=== PATIENT | female | born 1960 | race Caucasian/White ===

== ENCOUNTER 2023-08-20 23:08 | Inpatient (IN) | payer MEDICARE ==
[2023-08-20] MEDS ORDERED: Nitroglycerin 0.4 MG TAB 1 EACH ONE (23:35)
[2023-08-21] MEDS ORDERED: Furosemide 40 MG/4 ML VIAL ONE ×2 (00:33→06:35)
[2023-08-21] MEDS ORDERED: Azithromycin 500 MG VIAL ONE (00:34)
[2023-08-21 01:00] LABS: #Monocytes 0.2 thou/uL (0.11-0.59); #Neutrophils 10.2 thou/uL (1.40-6.50); %Basophils 0.3 % (0.0-1.0); %Eosinophils 0.1 % (0.0-10.0); %Lymphocytes 3.8 % (21.0-51.0); %Monocytes 1.9 % (0.0-10.0); %Neutrophils 93.4 % (42.0-75.0); Hematocrit 32.5 % (36.0-47.0); Hemoglobin 10.4 g/dL (12.0-16.0); Mean Corpuscular Hemoglobin 33.4 pg (27.0-31.0); Mean Corpuscular Volume 104.5 fl (78.0-98.0); Mean Platelet Volume 11.7 fL (7.4-10.4); Platelet Count 151 10x3/uL (130-400); RBC Distribution Width 13.9 % (11.5-14.5); Red Blood Cell (RBC) Count 3.11 mill/uL (4.20-5.40); White Blood Cell (WBC) Count 10.9 10x3/uL (4.8-10.8)
[2023-08-21 01:14] LABS: Anion Gap 15 mmol/L (10-20); BUN (Urea Nitrogen) 21 mg/dL (9.8-20.1); Calc. Creatinine Clearance 0 mL/min (70-130); Calcium 8.5 mg/dL (7.8-10.44); Carbon Dioxide 21 mmol/L (23-31); Chloride 108 mmol/L (98-107); Estimated GFR 31; Glucose 172 mg/dL (80-115); Potassium 3.9 mmol/L (3.5-5.1); Sodium 140 mmol/L (136-145)
[2023-08-21 01:23] LABS: Troponin I 0.379 ng/mL (< 0.028)
[2023-08-21 02:39] LABS: Actual Bicarbonate (HCO3v) 20.4 mEq/L (22-28); Calcium, Ionized (venous) 1.07 mmol/L (1.16-1.32); Chloride (VBG) 107 mmol/L (98-106); Hematocrit-VBG 35 % (36.0-47.0); Hemoglobin (Hb) 11.8 g/dL (11.7-16.0); Potassium (VBG) 3.74 mmol/L (3.70-5.30); Sodium 141 mmol/L (133-146); pH (venous) 7.285 (7.32-7.43)
[2023-08-21] MEDS ORDERED: Senokot S 8.6-50 MG TAB PO PRN (03:45)
[2023-08-21] MEDS ORDERED: Ondansetron ODT 4 MG TAB PO PRN (03:45)
[2023-08-21] MEDS ORDERED: Acetaminophen 325 MG TAB PO PRN (03:45)
[2023-08-21] MEDS ORDERED: Aspirin Chewable 81 MG TAB PO SCH (04:15)
[2023-08-21 04:35] LABS: Magnesium 1.8 mg/dL (1.6-2.6)
[2023-08-21 04:37] LABS: Lactic Acid 3.7 mmol/L (0.5-2.2)
[2023-08-21 04:43] LABS: Troponin I 1.631 ng/mL (< 0.028)
[2023-08-21] MEDS ORDERED: Aspirin Chewable 81 MG TAB ONE (05:09)
[2023-08-21] MEDS: Furosemide 40 MG/4 ML VIAL SLOW IVP SCH ×2 (06:38→14:37)
[2023-08-21 07:24] LABS: Lactic Acid 3.3 mmol/L (0.5-2.2)
[2023-08-21 07:52] LABS: Troponin I 2.605 ng/mL (< 0.028)
[2023-08-21] MEDS ORDERED: Aspirin 81 mg Enteric Coated Tablet ONE (09:08)
[2023-08-21] MEDS ORDERED: Clopidogrel Bisulfate 300 MG TAB ONE (09:08)
[2023-08-21] MEDS ORDERED: Carvedilol 6.25 MG TAB ONE (09:09)
[2023-08-21] MEDS ORDERED: Famotidine 20 MG TAB ONE (09:09)
[2023-08-21] MEDS ORDERED: Iopamidol-370 76% 500 ML MDV (1 ML CHARGE) ONE (09:10)
[2023-08-21] MEDS: Carvedilol 3.125 MG TAB PO SCH ×2 (09:18→17:14)
[2023-08-21] MEDS: Aspirin 81 mg Enteric Coated Tablet PO SCH (09:19)
[2023-08-21] MEDS: Famotidine 20 MG TAB PO SCH (09:20)
[2023-08-21] MEDS: Aspirin Chewable 81 MG TAB PO SCH (09:22)
[2023-08-21] MEDS ORDERED: Dextrose 50% Abboject 50 ML SYRINGE SLOW IVP PRN (11:33)
[2023-08-21] MEDS ORDERED: Dextrose 5% in Water 1,000 ML IV PRN (11:33)
[2023-08-21] MEDS ORDERED: HumaLOG 300 UNITS/3 ML VIAL SC PRN ×2 (11:33)
[2023-08-21] MEDS ORDERED: Glucagon 1 MG/ML KIT IM PRN (11:33)
[2023-08-21 12:27] VITALS: BMI 30.7
[2023-08-21] MEDS ORDERED: FLU VACC QS2023-24(6MOS UP)/PF 60 MCG/0.5 ML SYRINGE IM ONE (18:00)
[2023-08-21 21:50] LABS: RBC Count-Automated (BF) 590 /cu.mm; WBC/Nucleated-Auto (BF) 260 /cu.mm
[2023-08-21 21:59] LABS: BF Color Yellow; Body Fluid Source Thoracentesis Fluid; Clarity Clear (Clear); Tube # EDTA
[2023-08-21 22:09] LABS: Pleural Fluid, Protein 2.2 g/dL
[2023-08-21 22:12] LABS: BF Segmented Neutrophils 24 %; Cell Count Non Hematic 50 %; Lymphocytes 26 %
[2023-08-22 04:47] LABS: #Eosinphils 0.1 thou/uL (0.0-0.7); #Monocytes 0.4 thou/uL (0.11-0.59); #Neutrophils 6.5 thou/uL (1.40-6.50); %Basophils 0.3 % (0.0-1.0); %Eosinophils 0.9 % (0.0-10.0); %Lymphocytes 23.2 % (21.0-51.0); %Monocytes 4.3 % (0.0-10.0); %Neutrophils 70.9 % (42.0-75.0); Hematocrit 26.7 % (36.0-47.0); Hemoglobin 8.5 g/dL (12.0-16.0); Mean Corpuscular HGB CONC 31.8 g/dL (32.0-36.0); Mean Corpuscular Hemoglobin 33.1 pg (27.0-31.0); Mean Corpuscular Volume 103.9 fl (78.0-98.0); Mean Platelet Volume 12.3 fL (7.4-10.4); Platelet Count 113 10x3/uL (130-400); RBC Distribution Width 14.1 % (11.5-14.5); Red Blood Cell (RBC) Count 2.57 mill/uL (4.20-5.40); White Blood Cell (WBC) Count 9.1 10x3/uL (4.8-10.8)
[2023-08-22] MEDS: Furosemide 40 MG/4 ML VIAL SLOW IVP SCH ×2 (05:21→13:08)
[2023-08-22 05:46] LABS: CellaVision Operator ID lab.abc; Macrocytosis SLIGHT = 6-15 cells HPF (0-5); Platelet Adequacy Comment Platelets Decreased; Smudge Cells 18.8 %
[2023-08-22 06:07] LABS: Hemoglobin A1c 5.2 % (4.0-6.0)
[2023-08-22 06:15] LABS: Anion Gap 16 mmol/L (10-20); BUN (Urea Nitrogen) 37 mg/dL (9.8-20.1); Calc. Creatinine Clearance 38 mL/min (70-130); Calcium 8.6 mg/dL (7.8-10.44); Carbon Dioxide 24 mmol/L (23-31); Cardiac Risk 4.5 (Less than 4.5); Chloride 104 mmol/L (98-107); Cholesterol 184 mg/dl (< 200 Desired); Estimated GFR 25; Glucose 100 mg/dL (80-115); HDL Cholesterol 41 mg/dL (>60 Neg Risk); LDL Cholesterol, Calculated 124 mg/dL; Potassium 3.6 mmol/L (3.5-5.1); Sodium 140 mmol/L (136-145); Triglycerides 94 mg/dL (Less than 150)
[2023-08-22] MEDS: Carvedilol 3.125 MG TAB PO SCH ×2 (08:43→17:02)
[2023-08-22] MEDS: Famotidine 20 MG TAB PO SCH (08:44)
[2023-08-22] MEDS: Aspirin 81 mg Enteric Coated Tablet PO SCH (08:44)
[2023-08-22] MEDS: Aspirin Chewable 81 MG TAB PO SCH (08:50)
[2023-08-22 11:16] LABS: Troponin I 1.474 ng/mL (< 0.028)
[2023-08-23] MEDS: Furosemide 40 MG/4 ML VIAL SLOW IVP SCH (05:49)
[2023-08-23] MEDS: Carvedilol 3.125 MG TAB PO SCH ×2 (08:58→16:58)
[2023-08-23] MEDS: Aspirin 81 mg Enteric Coated Tablet PO SCH (08:58)
[2023-08-23] MEDS ORDERED: Amlodipine 5 MG TAB PO SCH (10:00)
[2023-08-23 10:40] LABS: Iron 88 ug/dL (50-170); Iron Binding Capacity, Total 303 mcg/dL (265-497)
[2023-08-23 11:07] LABS: Ferritin 352.75 ng/mL (10-291)
[2023-08-23 12:46] LABS: Bacteria/HPF None Seen HPF (None Seen); Bilirubin Negative (Negative); Blood, Urine Negative (Negative); Clarity Clear (Clear); Glucose, Urine (Dipstick) Normal (Negative); Ketone, Urine Negative (Negative); Leukocyte Negative Leu/uL (Negative); Nitrite Negative (Negative); Protein, Urine (Dipstick) Negative (Neg-Trace); RBC/HPF None Seen HPF (0-3); Squamous Epithelial 0-3 HPF (0-3); Urobilinogen Normal mg/dL (Less than 2); WBC/HPF 0-3 HPF (0-3); pH, Urine 5.5 (5.0-9.0)
[2023-08-23 15:59] LABS: Anion Gap 15 mmol/L (10-20); BUN (Urea Nitrogen) 41 mg/dL (9.8-20.1); Calc. Creatinine Clearance 32 mL/min (70-130); Calcium 8.5 mg/dL (7.8-10.44); Carbon Dioxide 28 mmol/L (23-31); Chloride 100 mmol/L (98-107); Estimated GFR 22; Glucose 112 mg/dL (80-115); Potassium 3.6 mmol/L (3.5-5.1); Sodium 139 mmol/L (136-145)
[2023-08-23] MEDS: Sodium Chloride 0.9% 1,000 ML IV SCH (16:58)
[2023-08-23] MEDS: Heparin 5,000 UNITS/ML VIAL SC SCH (21:20)
[2023-08-23] MEDS: Atorvastatin Calcium 20 MG TAB PO SCH (21:20)
[2023-08-24 05:14] LABS: #Eosinphils 0.2 thou/uL (0.0-0.7); #Monocytes 0.4 thou/uL (0.11-0.59); #Neutrophils 3.6 thou/uL (1.40-6.50); %Basophils 0.6 % (0.0-1.0); %Eosinophils 3.8 % (0.0-10.0); %Lymphocytes 32.3 % (21.0-51.0); %Monocytes 5.9 % (0.0-10.0); %Neutrophils 57.2 % (42.0-75.0); Hematocrit 28.3 % (36.0-47.0); Hemoglobin 9.2 g/dL (12.0-16.0); Mean Corpuscular HGB CONC 32.5 g/dL (32.0-36.0); Mean Corpuscular Hemoglobin 33.6 pg (27.0-31.0); Mean Corpuscular Volume 103.3 fl (78.0-98.0); Mean Platelet Volume 12.6 fL (7.4-10.4); Platelet Count 127 10x3/uL (130-400); RBC Distribution Width 13.9 % (11.5-14.5); Red Blood Cell (RBC) Count 2.74 mill/uL (4.20-5.40); White Blood Cell (WBC) Count 6.3 10x3/uL (4.8-10.8)
[2023-08-24 05:42] LABS: Anion Gap 16 mmol/L (10-20); BUN (Urea Nitrogen) 41 mg/dL (9.8-20.1); Calc. Creatinine Clearance 34 mL/min (70-130); Calcium 8.7 mg/dL (7.8-10.44); Carbon Dioxide 27 mmol/L (23-31); Chloride 102 mmol/L (98-107); Estimated GFR 24; Glucose 94 mg/dL (80-115); Potassium 3.7 mmol/L (3.5-5.1); Sodium 141 mmol/L (136-145)
[2023-08-24] MEDS ORDERED: Amlodipine 5 MG TAB PO SCH (09:00)
[2023-08-24] MEDS: Carvedilol 3.125 MG TAB PO SCH ×2 (09:46→17:00)
[2023-08-24] MEDS: Aspirin 81 mg Enteric Coated Tablet PO SCH (09:47)
[2023-08-24] MEDS: Heparin 5,000 UNITS/ML VIAL SC SCH ×2 (09:47→21:44)
[2023-08-24] MEDS: Sodium Chloride 0.9% 1,000 ML IV SCH (12:16)
[2023-08-24] MEDS: Atorvastatin Calcium 20 MG TAB PO SCH (21:43)
[2023-08-25 08:09] LABS: #Eosinphils 0.2 thou/uL (0.0-0.7); #Monocytes 0.3 thou/uL (0.11-0.59); #Neutrophils 2.8 thou/uL (1.40-6.50); %Basophils 0.6 % (0.0-1.0); %Lymphocytes 27.8 % (21.0-51.0); %Monocytes 7.2 % (0.0-10.0); %Neutrophils 59.8 % (42.0-75.0); Hematocrit 27.2 % (36.0-47.0); Hemoglobin 8.7 g/dL (12.0-16.0); Mean Corpuscular Hemoglobin 33.2 pg (27.0-31.0); Mean Corpuscular Volume 103.8 fl (78.0-98.0); RBC Distribution Width 13.6 % (11.5-14.5); Red Blood Cell (RBC) Count 2.62 mill/uL (4.20-5.40); White Blood Cell (WBC) Count 4.8 10x3/uL (4.8-10.8)
[2023-08-25 08:17] LABS: Platelet Count 109 10x3/uL (130-400)
[2023-08-25 08:35] LABS: Anion Gap 12 mmol/L (10-20); BUN (Urea Nitrogen) 37 mg/dL (9.8-20.1); Calc. Creatinine Clearance 35 mL/min (70-130); Calcium 8.4 mg/dL (7.8-10.44); Carbon Dioxide 24 mmol/L (23-31); Chloride 105 mmol/L (98-107); Estimated GFR 25; Glucose 99 mg/dL (80-115); Potassium 3.8 mmol/L (3.5-5.1); Sodium 137 mmol/L (136-145)
[2023-08-25] MEDS: Sodium Chloride 0.9% 1,000 ML IV SCH (09:17)
[2023-08-25] MEDS: Aspirin 81 mg Enteric Coated Tablet PO SCH (09:18)
[2023-08-25] MEDS: Heparin 5,000 UNITS/ML VIAL SC SCH ×2 (09:18→20:08)
[2023-08-25] MEDS: Amlodipine 10 MG TAB PO SCH (09:19)
[2023-08-25] MEDS: Carvedilol 3.125 MG TAB PO SCH ×2 (09:19→17:49)
[2023-08-25] MEDS: Atorvastatin Calcium 20 MG TAB PO SCH (20:08)
[2023-08-26 05:05] LABS: Anion Gap 11 mmol/L (10-20); BUN (Urea Nitrogen) 36 mg/dL (9.8-20.1); Calc. Creatinine Clearance 39 mL/min (70-130); Calcium 8.6 mg/dL (7.8-10.44); Carbon Dioxide 24 mmol/L (23-31); Chloride 106 mmol/L (98-107); Estimated GFR 28; Glucose 107 mg/dL (80-115); Sodium 137 mmol/L (136-145)
[2023-08-26] MEDS: Sodium Chloride 0.9% 1,000 ML IV SCH (08:46)
[2023-08-26] MEDS: Amlodipine 10 MG TAB PO SCH (08:47)
[2023-08-26] MEDS: Aspirin 81 mg Enteric Coated Tablet PO SCH (08:49)
[2023-08-26] MEDS: Carvedilol 3.125 MG TAB PO SCH ×2 (08:49→17:36)
[2023-08-26] MEDS: Heparin 5,000 UNITS/ML VIAL SC SCH ×2 (09:01→21:47)
[2023-08-26] MEDS: Atorvastatin Calcium 20 MG TAB PO SCH (21:47)
[2023-08-27] MEDS: Sodium Chloride 0.9% 1,000 ML IV SCH ×2 (03:05→21:23)
[2023-08-27 05:32] LABS: Anion Gap 10 mmol/L (10-20); BUN (Urea Nitrogen) 30 mg/dL (9.8-20.1); Calc. Creatinine Clearance 42 mL/min (70-130); Calcium 8.5 mg/dL (7.8-10.44); Carbon Dioxide 24 mmol/L (23-31); Chloride 108 mmol/L (98-107); Estimated GFR 30; Glucose 94 mg/dL (80-115); Potassium 3.9 mmol/L (3.5-5.1); Sodium 138 mmol/L (136-145)
[2023-08-27] MEDS: Carvedilol 3.125 MG TAB PO SCH ×2 (09:14→18:31)
[2023-08-27] MEDS: Aspirin 81 mg Enteric Coated Tablet PO SCH (09:14)
[2023-08-27] MEDS: Amlodipine 10 MG TAB PO SCH (09:14)
[2023-08-27] MEDS: Heparin 5,000 UNITS/ML VIAL SC SCH ×2 (09:16→21:24)
[2023-08-27] MEDS: Atorvastatin Calcium 20 MG TAB PO SCH (21:24)
[2023-08-28 04:50] LABS: Anion Gap 10 mmol/L (10-20); BUN (Urea Nitrogen) 32 mg/dL (9.8-20.1); Calc. Creatinine Clearance 42 mL/min (70-130); Calcium 8.5 mg/dL (7.8-10.44); Carbon Dioxide 22 mmol/L (23-31); Chloride 111 mmol/L (98-107); Estimated GFR 31; Glucose 95 mg/dL (80-115); Potassium 3.8 mmol/L (3.5-5.1); Sodium 139 mmol/L (136-145)
[2023-08-28] MEDS: Aspirin 81 mg Enteric Coated Tablet PO SCH (09:40)
[2023-08-28] MEDS: Heparin 5,000 UNITS/ML VIAL SC SCH (09:45)
[2023-08-28] MEDS: Amlodipine 10 MG TAB PO SCH (11:16)
[2023-08-28] MEDS: Carvedilol 3.125 MG TAB PO SCH ×2 (11:16→16:43)
[2023-08-28 11:54] LABS: #Eosinphils 0.2 thou/uL (0.0-0.7); #Monocytes 0.3 thou/uL (0.11-0.59); #Neutrophils 2.5 thou/uL (1.40-6.50); %Basophils 0.5 % (0.0-1.0); %Eosinophils 5.3 % (0.0-10.0); %Lymphocytes 22.8 % (21.0-51.0); %Monocytes 7.8 % (0.0-10.0); %Neutrophils 63.1 % (42.0-75.0); Hematocrit 29.1 % (36.0-47.0); Hemoglobin 9.1 g/dL (12.0-16.0); Mean Corpuscular HGB CONC 31.3 g/dL (32.0-36.0); Mean Corpuscular Hemoglobin 33.3 pg (27.0-31.0); Mean Corpuscular Volume 106.6 fl (78.0-98.0); Mean Platelet Volume 13.4 fL (7.4-10.4); RBC Distribution Width 13.7 % (11.5-14.5); Red Blood Cell (RBC) Count 2.73 mill/uL (4.20-5.40)
[2023-08-28 11:58] LABS: Platelet Count 97 10x3/uL (130-400)
[2023-08-28 12:06] LABS: INR-International Normal Ratio 1.1; PTT 31.2 sec (22.9-36.1); Prothrombin Time 14.3 sec (12.0-14.7)
[2023-08-28] MEDS: Sodium Chloride 0.9% 1,000 ML IV SCH (16:44)
[2023-08-28] MEDS ORDERED: hydrALAZINE 20 MG/ML VIAL SLOW IVP PRN (17:42)
[2023-08-28] MEDS: Atorvastatin Calcium 20 MG TAB PO SCH (21:22)
[2023-08-29 08:03] LABS: #Eosinphils 0.2 thou/uL (0.0-0.7); #Monocytes 0.4 thou/uL (0.11-0.59); #Neutrophils 3.1 thou/uL (1.40-6.50); %Basophils 0.4 % (0.0-1.0); %Eosinophils 4.3 % (0.0-10.0); %Lymphocytes 24.1 % (21.0-51.0); %Monocytes 7.3 % (0.0-10.0); %Neutrophils 63.7 % (42.0-75.0); Hematocrit 27.7 % (36.0-47.0); Hemoglobin 8.7 g/dL (12.0-16.0); Mean Corpuscular HGB CONC 31.4 g/dL (32.0-36.0); Mean Corpuscular Hemoglobin 33.2 pg (27.0-31.0); Mean Corpuscular Volume 105.7 fl (78.0-98.0); Platelet Count 99 10x3/uL (130-400); RBC Distribution Width 13.6 % (11.5-14.5); Red Blood Cell (RBC) Count 2.62 mill/uL (4.20-5.40); White Blood Cell (WBC) Count 4.9 10x3/uL (4.8-10.8)
[2023-08-29 08:23] LABS: Anion Gap 13 mmol/L (10-20); BUN (Urea Nitrogen) 25 mg/dL (9.8-20.1); Calc. Creatinine Clearance 53 mL/min (70-130); Calcium 8.6 mg/dL (7.8-10.44); Carbon Dioxide 21 mmol/L (23-31); Chloride 110 mmol/L (98-107); Estimated GFR 36; Glucose 91 mg/dL (80-115); Potassium 3.9 mmol/L (3.5-5.1); Sodium 140 mmol/L (136-145)
[2023-08-29] MEDS ORDERED: Regadenoson 0.4 MG/5 ML SYRINGE ONE (11:43)
[2023-08-29] MEDS: Amlodipine 10 MG TAB PO SCH (14:33)
[2023-08-29] MEDS: Aspirin 81 mg Enteric Coated Tablet PO SCH (14:33)
[2023-08-29] MEDS: Carvedilol 3.125 MG TAB PO SCH ×2 (14:37→18:35)
[2023-08-29] MEDS: Sodium Chloride 0.9% 1,000 ML IV SCH (14:39)
[2023-08-29] MEDS ORDERED: Clopidogrel Bisulfate 300 MG TAB PO SCH (17:45)
[2023-08-29] MEDS: Atorvastatin Calcium 20 MG TAB PO SCH (21:10)
[2023-08-30 05:29] LABS: #Eosinphils 0.1 thou/uL (0.0-0.7); #Monocytes 0.4 thou/uL (0.11-0.59); #Neutrophils 2.6 thou/uL (1.40-6.50); %Basophils 0.2 % (0.0-1.0); %Eosinophils 3.3 % (0.0-10.0); %Lymphocytes 27.7 % (21.0-51.0); %Monocytes 8.3 % (0.0-10.0); %Neutrophils 60.3 % (42.0-75.0); Hematocrit 26.7 % (36.0-47.0); Hemoglobin 8.6 g/dL (12.0-16.0); Mean Corpuscular HGB CONC 32.2 g/dL (32.0-36.0); Mean Corpuscular Hemoglobin 33.6 pg (27.0-31.0); Mean Corpuscular Volume 104.3 fl (78.0-98.0); Mean Platelet Volume 13.3 fL (7.4-10.4); Platelet Count 97 10x3/uL (130-400); RBC Distribution Width 13.7 % (11.5-14.5); Red Blood Cell (RBC) Count 2.56 mill/uL (4.20-5.40); White Blood Cell (WBC) Count 4.2 10x3/uL (4.8-10.8)
[2023-08-30 05:56] LABS: Anion Gap 12 mmol/L (10-20); BUN (Urea Nitrogen) 23 mg/dL (9.8-20.1); Calc. Creatinine Clearance 51 mL/min (70-130); Calcium 8.8 mg/dL (7.8-10.44); Carbon Dioxide 22 mmol/L (23-31); Chloride 112 mmol/L (98-107); Estimated GFR 35; Glucose 85 mg/dL (80-115); Potassium 3.7 mmol/L (3.5-5.1); Sodium 142 mmol/L (136-145)
[2023-08-30 08:59] VITALS: BP 171/72; TEMP 97.9
[2023-08-30] MEDS ORDERED: Clopidogrel Bisulfate 75 MG TAB PO SCH (09:00)
[2023-08-30] MEDS ORDERED: Empagliflozin 10 MG TAB PO SCH (09:00)
[2023-08-30] MEDS ORDERED: Losartan 25 MG TAB PO SCH (09:00)
[2023-08-30] MEDS ORDERED: hydrALAZINE 25 MG TAB PO SCH (09:00)
[2023-08-30] MEDS: Aspirin 81 mg Enteric Coated Tablet PO SCH (10:00)
[2023-08-30] MEDS: Amlodipine 10 MG TAB PO SCH (10:00)
[2023-08-30] MEDS: Carvedilol 3.125 MG TAB PO SCH (10:01)
[2023-08-30] MEDS: Sodium Chloride 0.9% 1,000 ML IV SCH (11:08)
== END 2023-08-30 12:04 | disposition home or self-care (01) | DRG 280 ==
LOC: ERS 23:08 → ERHOLD 08-21 03:29 → 2SE 08-21 11:38
PROVIDERS: ADMIT Student in an Organized Health Care Education/Training Program; ATTEND Family Medicine
PROC: 0W993ZZ Drainage of Right Pleural Cavity, Percutaneous Approach (ICD-10-PCS; principal; 2023-08-21)
PROC: 4A043R1 Measurement of Venous Saturation, Peripheral, Percutaneous Approach (ICD-10-PCS; 2023-08-21)
DX: I11.0 Hypertensive heart disease with heart failure (principal); I21.4 Non-ST elevation (NSTEMI) myocardial infarction; I50.41 Acute combined systolic (congestive) and diastolic (congestive) heart failure; J96.00 Acute respiratory failure, unspecified whether with hypoxia or hypercapnia; N17.9 Acute kidney failure, unspecified; J90 Pleural effusion, not elsewhere classified; I47.20 Ventricular tachycardia, unspecified; D61.818 Other pancytopenia; Z89.512 Acquired absence of left leg below knee; Z79.82 Long term (current) use of aspirin; Z79.899 Other long term (current) drug therapy; Z66 Do not resuscitate; D63.1 Anemia in chronic kidney disease; K21.9 Gastro-esophageal reflux disease without esophagitis; Z79.01 Long term (current) use of anticoagulants; N18.30 Chronic kidney disease, stage 3 unspecified; D69.6 Thrombocytopenia, unspecified; F22 Delusional disorders; K82.8 Other specified diseases of gallbladder; I25.10 Atherosclerotic heart disease of native coronary artery without angina pectoris
CPT/HCPCS: 36415; 36416; 70450; 71045; 71275; 74176; 76770; 78452; 80048; 80061; 81001; 82607; 82728; 82805; 82945; 83036; 83540; 83550; 83605; 83615; 83735; 83880; 84157; 84443; 84484; 85025; 85060; 85379; 85610; 85730; 86850; 86900; 86901; 87116; 87206; 88112; 88305; 89051; 93005; 93017; 93306; 94660; 96365; 96375; 97139; A9502; J0360; J0456; J1644; J1650; J1940; J2785; J7050; Q0162; Q9967

== ENCOUNTER 2024-08-24 22:04 | Inpatient (IN) | payer MEDICARE ==
[2024-08-24 23:06] LABS: #Basophils Less than 0.03 10x3/uL (0.0-0.2); #Eosinophils Less than 0.03 10x3/uL (0.0-0.7); %Basophils 0.1 % (0.0-1.0); %Eosinophils 0.1 % (0.0-10.0); %Lymphocytes 2.9 % (21.0-51.0); %Monocytes 3.7 % (0.0-10.0); %Neutrophils 91.9 % (42.0-75.0); Hematocrit 25.2 % (36.0-47.0); Hemoglobin 8.4 g/dL (12.0-16.0); Mean Corpuscular HGB CONC 33.3 g/dL (32.0-36.0); Mean Corpuscular Hemoglobin 32.8 pg (27.0-31.0); Mean Corpuscular Volume 98.4 fL (78.0-98.0); Mean Platelet Volume 12.6 fL (7.4-10.4); Platelet Count 111 10x3/uL (130-400); RBC Distribution Width 14.1 % (11.5-14.5); Red Blood Cell (RBC) Count 2.56 mill/uL (4.20-5.40)
[2024-08-24 23:17] LABS: ALT (SGPT) 29 U/L (8-55); AST (SGOT) 43 U/L (5-34); Albumin 2.5 g/dL (3.4-4.8); Alkaline Phosphatase 118 U/L (40-110); Anion Gap 12 mmol/L (10-20); BUN (Urea Nitrogen) 35 mg/dL (9.8-20.1); Bilirubin, Total 1.2 mg/dL (0.2-1.2); Calc. Creatinine Clearance 0 mL/min (70-130); Calcium 8.3 mg/dL (7.8-10.44); Carbon Dioxide 19 mmol/L (23-31); Chloride 104 mmol/L (98-107); Estimated GFR 21; Globulin 4.1 g/dL (2.4-3.5); Glucose 135 mg/dL (80-115); Potassium 3.4 mmol/L (3.5-5.1); Protein, Total 6.6 g/dL (5.8-8.1); Sodium 132 mmol/L (136-145)
[2024-08-24 23:22] LABS: Troponin I 0.077 ng/mL (< 0.028)
[2024-08-24] MEDS ORDERED: Ondansetron PF 4 MG/2 ML Vial ONE (23:32)
[2024-08-24] MEDS ORDERED: Acetaminophen 325 MG TAB ONE (23:32)
[2024-08-24] MEDS ORDERED: Cefepime 2 GM VIAL ONE (23:34)
[2024-08-24] MEDS ORDERED: Sodium Chloride 0.9% 100 ML ONE (23:34)
[2024-08-24] MEDS ORDERED: Vancomycin 1 GM in Sodium Chloride 0.9% 500 ML IVPB SCH (23:45)
[2024-08-24] MEDS ORDERED: Acetaminophen 325 MG TAB PO PRN (23:49)
[2024-08-24 23:52] LABS: Bacteria/HPF 4+ HPF (None Seen); Bilirubin Negative (Negative); Blood, Urine 2+ (Negative); CAUTI Indications for Culture Alt mental st,lethar; Clarity Turbid (Clear); Glucose, Urine (Dipstick) Normal (Negative); Ketone, Urine Negative (Negative); Leukocyte 250 Leu/uL (Negative); Nitrite Negative (Negative); Protein, Urine (Dipstick) 100 mg/dL (Neg-Trace); Urobilinogen 3 mg/dL (Less than 2); WBC/HPF 21-50 HPF (0-3); pH, Urine 5.5 (5.0-9.0)
[2024-08-24] MEDS ORDERED: Aspirin Chewable 81 MG TAB ONE (23:53)
[2024-08-24 23:56] LABS: Urine Culture Reflex Yes Yes
[2024-08-25] MEDS ORDERED: hydrALAZINE 25 MG TAB PO PRN (00:47)
[2024-08-25] MEDS: Clindamycin/D5W 900 MG in Premix 1 BAG IVPB ONE (01:30)
[2024-08-25 01:38] VITALS: BMI 30.7
[2024-08-25] MEDS ORDERED: Vancomycin Dose by Levels Sliding Scale (Wt 71-99) FS SCH (02:00)
[2024-08-25] MEDS: Vancomycin (BATCH) 2.5 GM in Premix 1 BAG IVPB ONE (02:24)
[2024-08-25] MEDS: Potassium Chloride 20 MEQ TAB PO SCH (02:47)
[2024-08-25] MEDS: Potassium Bicarbonate/Cit Ac 20 MEQ TAB PO SCH (02:57)
[2024-08-25 03:05] LABS: ALT (SGPT) 25 U/L (8-55); AST (SGOT) 41 U/L (5-34); Albumin 2.1 g/dL (3.4-4.8); Alkaline Phosphatase 108 U/L (40-110); Anion Gap 12 mmol/L (10-20); BUN (Urea Nitrogen) 35 mg/dL (9.8-20.1); Bilirubin, Total 1.2 mg/dL (0.2-1.2); Calc. Creatinine Clearance 37 mL/min (70-130); Calcium 7.9 mg/dL (7.8-10.44); Carbon Dioxide 17 mmol/L (23-31); Chloride 105 mmol/L (98-107); Estimated GFR 24; Globulin 3.5 g/dL (2.4-3.5); Glucose 116 mg/dL (80-115); Potassium 3.4 mmol/L (3.5-5.1); Protein, Total 5.6 g/dL (5.8-8.1); Sodium 131 mmol/L (136-145)
[2024-08-25 03:07] LABS: #Basophils Less than 0.03 10x3/uL (0.0-0.2); #Eosinophils Less than 0.03 10x3/uL (0.0-0.7); %Basophils 0.1 % (0.0-1.0); %Lymphocytes 4.5 % (21.0-51.0); %Monocytes 3.7 % (0.0-10.0); %Neutrophils 89.9 % (42.0-75.0); Hematocrit 23.1 % (36.0-47.0); Hemoglobin 7.4 g/dL (12.0-16.0); Mean Corpuscular Hemoglobin 32.6 pg (27.0-31.0); Mean Corpuscular Volume 101.8 fL (78.0-98.0); Mean Platelet Volume 12.6 fL (7.4-10.4); Platelet Count 101 10x3/uL (130-400); RBC Distribution Width 14.2 % (11.5-14.5); Red Blood Cell (RBC) Count 2.27 mill/uL (4.20-5.40)
[2024-08-25 03:08] LABS: Troponin I 0.075 ng/mL (< 0.028)
[2024-08-25 06:14] LABS: Troponin I 0.069 ng/mL (< 0.028)
[2024-08-25] MEDS: Pantoprazole DR 40 MG TAB PO SCH (09:35)
[2024-08-25] MEDS: Heparin 5,000 UNITS/ML VIAL SC SCH (09:35)
[2024-08-25] MEDS: Cefepime 1 GM in Sodium Chloride 0.9% 100 ML IVPB SCH (23:59)
[2024-08-26 00:35] LABS: Vancomycin, Trough 23.3 ug/mL
[2024-08-26 09:25] LABS: #Basophils 0.03 10x3/uL (0.0-0.2); %Basophils 0.3 % (0.0-1.0); %Eosinophils 1.1 % (0.0-10.0); %Lymphocytes 8.1 % (21.0-51.0); %Monocytes 5.4 % (0.0-10.0); %Neutrophils 83.1 % (42.0-75.0); Hematocrit 22.8 % (36.0-47.0); Hemoglobin 7.3 g/dL (12.0-16.0); Mean Corpuscular Hemoglobin 32.7 pg (27.0-31.0); Mean Corpuscular Volume 102.2 fL (78.0-98.0); Mean Platelet Volume 12.9 fL (7.4-10.4); Platelet Count 101 10x3/uL (130-400); RBC Distribution Width 14.6 % (11.5-14.5); Red Blood Cell (RBC) Count 2.23 mill/uL (4.20-5.40)
[2024-08-26 09:44] LABS: Anion Gap 13 mmol/L (10-20); BUN (Urea Nitrogen) 41 mg/dL (9.8-20.1); Calc. Creatinine Clearance 33 mL/min (70-130); Calcium 8.3 mg/dL (7.8-10.44); Carbon Dioxide 19 mmol/L (23-31); Chloride 104 mmol/L (98-107); Estimated GFR 21; Glucose 96 mg/dL (80-115); Potassium 3.7 mmol/L (3.5-5.1); Sodium 132 mmol/L (136-145)
[2024-08-26 10:00] LABS: Anisocytosis SLIGHT = 6-15 cells HPF (0-5); Hypochromia SLIGHT = 6-15 cells HPF (0-5); Macrocytosis SLIGHT = 6-15 cells HPF (0-5); Ovalocytes SLIGHT = 2-5 cells HPF (0-1); Platelet Adequacy Comment Platelets Decreased; Poikilocytosis SLIGHT = 6-15 cells HPF (0-5); Polychromasia SLIGHT = 2-3 cells HPF (0-2); Schistocytes SLIGHT = 2-5 cells HPF (0-1)
[2024-08-26] MEDS: Amlodipine 5 MG TAB PO SCH (10:06)
[2024-08-26] MEDS: Aspirin 81 mg Enteric Coated Tablet PO SCH (10:08)
[2024-08-26] MEDS: Carvedilol 3.125 MG TAB PO SCH (10:08)
[2024-08-26] MEDS: Empagliflozin 10 MG TAB PO SCH (10:09)
[2024-08-26] MEDS: Rosuvastatin 20 MG TAB PO SCH (20:59)
[2024-08-26 21:51] VITALS: BMI 30.7
[2024-08-26] MEDS: traMADol HCl 50 MG TAB PO PRN (22:37)
[2024-08-26 23:17] LABS: Iron 42 ug/dL (50-170); Iron Binding Capacity, Total 158 mcg/dL (265-497)
[2024-08-27 00:34] LABS: Vancomycin, Trough 15.2 ug/mL
[2024-08-27] MEDS: Vancomycin HCl 500 MG in Sodium Chloride 0.9% 100 ML IV SCH (01:36)
[2024-08-27 06:02] LABS: Anion Gap 13 mmol/L (10-20); BUN (Urea Nitrogen) 46 mg/dL (9.8-20.1); Calc. Creatinine Clearance 30 mL/min (70-130); Calcium 8.3 mg/dL (7.8-10.44); Carbon Dioxide 19 mmol/L (23-31); Chloride 104 mmol/L (98-107); Estimated GFR 19; Glucose 108 mg/dL (80-115); Potassium 3.8 mmol/L (3.5-5.1); Sodium 132 mmol/L (136-145)
[2024-08-27] MEDS: EPOETIN ALFA-EPBX (ESRD) 10,000 UNITS/ML VIAL SC SCH ×2 (17:26→17:27)
[2024-08-28 01:15] LABS: Vancomycin, Trough 24.3 ug/mL
[2024-08-28 11:02] LABS: #Basophils Less than 0.03 10x3/uL (0.0-0.2); %Basophils 0.2 % (0.0-1.0); %Lymphocytes 10.6 % (21.0-51.0); %Neutrophils 80.2 % (42.0-75.0); Hematocrit 23.3 % (36.0-47.0); Hemoglobin 7.4 g/dL (12.0-16.0); Mean Corpuscular HGB CONC 31.8 g/dL (32.0-36.0); Mean Corpuscular Volume 100.9 fL (78.0-98.0); Mean Platelet Volume 12.9 fL (7.4-10.4); Platelet Count 127 10x3/uL (130-400); RBC Distribution Width 14.6 % (11.5-14.5); Red Blood Cell (RBC) Count 2.31 mill/uL (4.20-5.40)
[2024-08-28 11:18] LABS: Anion Gap 13 mmol/L (10-20); BUN (Urea Nitrogen) 42 mg/dL (9.8-20.1); Calc. Creatinine Clearance 32 mL/min (70-130); Calcium 8.5 mg/dL (7.8-10.44); Carbon Dioxide 19 mmol/L (23-31); Chloride 107 mmol/L (98-107); Estimated GFR 20; Glucose 138 mg/dL (80-115); Potassium 3.9 mmol/L (3.5-5.1); Sodium 135 mmol/L (136-145)
[2024-08-28] MEDS: LevoFLOXacin 250 MG TAB PO SCH (13:02)
[2024-08-28 21:27] VITALS: BP 165/69; TEMP 97.8
[2024-08-29] MEDS ORDERED: LevoFLOXacin 250 MG TAB PO SCH (06:00)
[2024-09-03] MEDS ORDERED: EPOETIN ALFA-EPBX (ESRD) 10,000 UNITS/ML VIAL SC SCH (12:00)
== END 2024-08-28 22:20 | disposition home health service (06) | DRG 872 ==
LOC: ERS 22:04 → 2NO 23:44 → SURG B 08-26 21:44
PROVIDERS: ADMIT Internal Medicine; ATTEND Internal Medicine
DX: A41.9 Sepsis, unspecified organism (principal); N17.9 Acute kidney failure, unspecified; I13.0 Hypertensive heart and chronic kidney disease with heart failure and stage 1 through stage 4 chronic kidney disease, or unspecified chronic kidney disease; N39.0 Urinary tract infection, site not specified; I50.42 Chronic combined systolic (congestive) and diastolic (congestive) heart failure; E87.20 Acidosis, unspecified; Z66 Do not resuscitate; I89.0 Lymphedema, not elsewhere classified; I44.7 Left bundle-branch block, unspecified; N18.9 Chronic kidney disease, unspecified; Z89.512 Acquired absence of left leg below knee; Z88.5 Allergy status to narcotic agent; Z88.8 Allergy status to other drugs, medicaments and biological substances
CPT/HCPCS: 36415; 51701; 71045; 71250; 74177; 80048; 80053; 80202; 81001; 82728; 83540; 83550; 83605; 83880; 84145; 84484; 85025; 87040; 87070; 87077; 87081; 87086; 87186; 87205; 93005; 94760; 96365; 96375; 97139; J0692; J1644; J2405; J3370; J3490; Q5105